=== PATIENT | female | born 1950 | race Caucasian/White ===

== ENCOUNTER 2020-07-20 08:14 | Inpatient (IN) ==
[2020-07-20] MEDS ORDERED: DILTIAZEM 50 MG/10 ML VIAL IV STA (08:37)
[2020-07-20 08:45] LABS: Basophils % 0.3 % (0.0-0.8); Eosinophils # 0.2 10*3/uL (0.0-0.87); Eosinophils % 3.5 % (0.00-10.9); Immature Granulocytes % 0.3 %; Immature Granulocytes Absolute 0.02 #; Lymphocytes # 0.6 10*3/uL (1.4-4.0); Lymphocytes % 9.4 % (21.3-54.2); Mean Corpuscular Volume 80.8 FL (87-102); Mean Platelet Volume 8.5 FL (9.6-12.0); Monocytes % 9.5 % (1.7-12.7); Platelet Count 377 T/CUMM (130-400); Red Cell Distribution Width 20.3 % (9.3-17.3); White Blood Count 6.5 T/CUMM (4-12)
[2020-07-20 08:49] LABS: Hemoglobin 6.1 GM/DL (12.0-16.0)
[2020-07-20 08:54] LABS: PT Patient Result 10.5 SECS (9.8-11.9)
[2020-07-20] MEDS: DILTIAZEM INJ 100 MG in SODIUM CHLORIDE 0.9% 100 ML IV SCH ×2 (09:07→15:53)
[2020-07-20] MEDS ORDERED: SODIUM CHLORIDE 0.9% 1,000 ML IV PRN (09:13)
[2020-07-20 09:15] LABS: Folate > 24.0 NG/ML (5.38-24.0); Vitamin B12 1039 PG/ML (211-911)
[2020-07-20 09:22] LABS: Alanine Aminotransferase 50 U/L (13-56); Albumin 2.8 G/DL (3.4-5.0); Alkaline Phosphatase 155 U/L (45-117); Aspartate Amino Transferase 32 U/L (0-37); Bilirubin,Total < 0.39 MG/DL (0.2-1.0); Blood Urea Nitrogen 32 MG/DL (7-18); Calcium 8.6 MG/DL (8.5-10.1); Carbon Dioxide 23 MMOL/L (21-32); Estimated Glom Filtration Rate 49 ML/MIN; Glucose 105 MG/DL (74-106); Osmolality,Calculated 264.9 MOS/KG (273-304); Potassium 3.6 MMOL/L (3.5-5.1); Sodium 129 MMOL/L (136-145); Total Protein 6.6 G/DL (6.4-8.2)
[2020-07-20 09:29] LABS: Bilirubin,Urine Negative (Negative); Blood, Urine Negative (Negative); Glucose,Urine (UA) Negative (Negative); Ketones,Urine Negative (Negative); Mucus,Urine Occasional /LPF (Occasional); Nitrite,Urine Negative (Negative); Protein,Urine Negative; Squamous Epithelial Cell,Urine Occasional /HPF (0-10); Urine Appearance CLEAR (Clear); Urine Color Yellow (Yellow); Urine Specific Gravity 1.011 (1.001-1.035); Urine Urobilinogen < 2.0 EU/DL (0.2-1.0); WBC,Urine <1 /HPF (0-6)
[2020-07-20 09:33] LABS: Barbiturates Screen,Urine Negative (Negative); Benzodiazepines Screen,Urine Positive (Negative); Cannabinoid Screen,Urine Negative (Negative); Opiate Screen,Urine Negative (Negative); Phencyclidine Screen,Urine Negative (Negative)
[2020-07-20] MEDS ORDERED: DEXTROSE 50% 25 GM/50 ML VIAL IV PRN (09:55)
[2020-07-20] MEDS ORDERED: ONDANSETRON 4 MG/2 ML VIAL IV PRN (09:55)
[2020-07-20] MEDS ORDERED: GLUCAGON 1 MG VIAL IM PRN (09:55)
[2020-07-20] MEDS ORDERED: ACETAMINOPHEN 325 MG TABLET PO PRN (09:55)
[2020-07-20] MEDS: LORazepam 1 MG TABLET PO PRN (12:24)
[2020-07-20] MEDS ORDERED: POTASSIUM CHLORIDE 20 MEQ TABLET PO ONE (13:12)
[2020-07-20] MEDS ORDERED: MAGNESIUM SULF RIDER 2 GM in PREMIX 1 EACH IV ONE (13:12)
[2020-07-20] MEDS: busPIRone 15 MG TABLET PO SCH (20:16)
[2020-07-20] MEDS: FERROUS SULFATE 325 MG TABLET PO SCH (20:17)
[2020-07-21] MEDS: DILTIAZEM INJ 100 MG in SODIUM CHLORIDE 0.9% 100 ML IV SCH ×2 (04:57→18:43)
[2020-07-21 06:44] LABS: Basophils % 0.4 % (0.0-0.8); Eosinophils # 0.2 10*3/uL (0.0-0.87); Eosinophils % 1.8 % (0.00-10.9); Immature Granulocytes % 0.5 %; Immature Granulocytes Absolute 0.05 #; Lymphocytes # 0.4 10*3/uL (1.4-4.0); Lymphocytes % 4.4 % (21.3-54.2); Mean Corpuscular HGB Conc 30.4 GM/DL (32-36); Mean Corpuscular Volume 82.9 FL (87-102); Monocytes % 7.8 % (1.7-12.7); Neutrophils % 85.1 % (38.7-73.9); Platelet Count 323 T/CUMM (130-400); Red Cell Distribution Width 19.1 % (9.3-17.3)
[2020-07-21 06:51] LABS: Hematocrit 29.6 VOL% (35.7-47.0); Red Blood Count 3.57 MC/CUMM (3.8-5.5)
[2020-07-21 07:02] LABS: Calcium 8.7 MG/DL (8.5-10.1); Osmolality,Calculated 268.4 MOS/KG (273-304); Potassium 4.2 MMOL/L (3.5-5.1); Risk Ratio 1.84; VLDL CHOLESTEROL 8.6 MG/DL
[2020-07-21 07:06] LABS: Eosinophils 2 % (0-10); Hypochromasia 1+; Lymphocytes 2 % (20-55); Microcytosis 1+; Platelet Estimate Adequate; Segmented Neutrophils 92 % (50-85); Total Cells Counted 100
[2020-07-21] MEDS: LORazepam 1 MG TABLET PO PRN ×3 (07:29→21:42)
[2020-07-21] MEDS ORDERED: LACTATED RINGERS 1,000 ML IV SCH (08:00)
[2020-07-21] MEDS ORDERED: FUROSEMIDE 40 MG/4 ML VIAL IV ONE (08:41)
[2020-07-21] MEDS ORDERED: METOPROLOL TARTRATE 5 MG/5 ML VIAL IV ONE (08:42)
[2020-07-21] MEDS: SODIUM CHLORIDE 0.9% 1,000 ML IV SCH (11:28)
[2020-07-21] MEDS ORDERED: DILTIAZEM CD 240 MG CAPSULE PO SCH (13:30)
[2020-07-21] MEDS ORDERED: ETOMIDATE 20 MG/10 ML VIAL IV ONE (13:45)
[2020-07-21] MEDS ORDERED: LIDOCAINE 2% 5 ML VIAL ONE (13:45)
[2020-07-21] MEDS: ASCORBIC ACID 500 MG TABLET PO SCH ×2 (15:02→21:42)
[2020-07-21] MEDS: FOLIC ACID 1 MG TABLET PO SCH (15:02)
[2020-07-21] MEDS: THIAMINE 100 MG TABLET PO SCH (15:02)
[2020-07-21] MEDS: FERROUS SULFATE 325 MG TABLET PO SCH ×2 (15:02→21:42)
[2020-07-21] MEDS: PANTOPRAZOLE 40 MG TABLET PO SCH (15:02)
[2020-07-21] MEDS: MULTIVITAMIN (CENTRUM) TABLET PO SCH (15:03)
[2020-07-21] MEDS: buPROPion XL 150 MG TABLET PO SCH (15:10)
[2020-07-21] MEDS: busPIRone 15 MG TABLET PO SCH ×2 (15:10→21:42)
[2020-07-21] MEDS: ATORVASTATIN 20 MG TABLET PO SCH (15:10)
[2020-07-21] MEDS ORDERED: DILTIAZEM CD 240 MG CAPSULE PO ONE (18:59)
[2020-07-21] MEDS: DOCUSATE SODIUM 100 MG CAPSULE PO PRN (21:42)
[2020-07-22 06:51] LABS: Basophils % 0.3 % (0.0-0.8); Eosinophils # 0.2 10*3/uL (0.0-0.87); Eosinophils % 1.6 % (0.00-10.9); Hematocrit 30.4 VOL% (35.7-47.0); Hemoglobin 9.8 GM/DL (12.0-16.0); Immature Granulocytes % 0.3 %; Immature Granulocytes Absolute 0.03 #; Lymphocytes # 0.5 10*3/uL (1.4-4.0); Lymphocytes % 5.1 % (21.3-54.2); Mean Corpuscular HGB Conc 32.2 GM/DL (32-36); Mean Corpuscular Volume 80.6 FL (87-102); Mean Platelet Volume 8.8 FL (9.6-12.0); Monocytes % 5.8 % (1.7-12.7); Neutrophils % 86.9 % (38.7-73.9); Platelet Count 316 T/CUMM (130-400); Red Blood Count 3.77 MC/CUMM (3.8-5.5); Red Cell Distribution Width 19.6 % (9.3-17.3); White Blood Count 9.2 T/CUMM (4-12)
[2020-07-22 07:03] LABS: Calcium 9.3 MG/DL (8.5-10.1); Osmolality,Calculated 269.2 MOS/KG (273-304); Potassium 3.5 MMOL/L (3.5-5.1)
[2020-07-22] MEDS ORDERED: POTASSIUM CHLORIDE 20 MEQ TABLET PO ONE (07:31)
[2020-07-22] MEDS: FOLIC ACID 1 MG TABLET PO SCH (08:25)
[2020-07-22] MEDS: buPROPion XL 150 MG TABLET PO SCH (08:25)
[2020-07-22] MEDS: busPIRone 15 MG TABLET PO SCH ×2 (08:25→21:04)
[2020-07-22] MEDS: MULTIVITAMIN (CENTRUM) TABLET PO SCH (08:25)
[2020-07-22] MEDS: DILTIAZEM CD 240 MG CAPSULE PO SCH ×2 (08:25→21:07)
[2020-07-22] MEDS: PANTOPRAZOLE 40 MG TABLET PO SCH (08:26)
[2020-07-22] MEDS: ASCORBIC ACID 500 MG TABLET PO SCH ×2 (08:26→21:05)
[2020-07-22] MEDS: ATORVASTATIN 20 MG TABLET PO SCH (08:26)
[2020-07-22] MEDS: FERROUS SULFATE 325 MG TABLET PO SCH ×2 (08:26→21:05)
[2020-07-22] MEDS: THIAMINE 100 MG TABLET PO SCH (08:26)
[2020-07-22] MEDS: DOCUSATE SODIUM 100 MG CAPSULE PO PRN (08:26)
[2020-07-22] MEDS: SODIUM CHLORIDE 0.9% 1,000 ML IV SCH (17:05)
[2020-07-22] MEDS: DILTIAZEM INJ 100 MG in SODIUM CHLORIDE 0.9% 100 ML IV SCH (17:05)
[2020-07-23 06:37] LABS: Basophils % 0.5 % (0.0-0.8); Eosinophils # 0.4 10*3/uL (0.0-0.87); Eosinophils % 5.4 % (0.00-10.9); Hematocrit 30.1 VOL% (35.7-47.0); Hemoglobin 9.2 GM/DL (12.0-16.0); Immature Granulocytes % 0.4 %; Immature Granulocytes Absolute 0.03 #; Lymphocytes # 0.6 10*3/uL (1.4-4.0); Lymphocytes % 7.4 % (21.3-54.2); Mean Corpuscular HGB Conc 30.6 GM/DL (32-36); Mean Corpuscular Volume 83.1 FL (87-102); Mean Platelet Volume 9.4 FL (9.6-12.0); Monocytes % 7.4 % (1.7-12.7); Neutrophils % 78.9 % (38.7-73.9); Platelet Count 346 T/CUMM (130-400); Red Blood Count 3.62 MC/CUMM (3.8-5.5); Red Cell Distribution Width 19.9 % (9.3-17.3); White Blood Count 8.1 T/CUMM (4-12)
[2020-07-23 06:46] LABS: Calcium 9.4 MG/DL (8.5-10.1); Potassium 3.8 MMOL/L (3.5-5.1)
[2020-07-23] MEDS: ASCORBIC ACID 500 MG TABLET PO SCH (08:40)
[2020-07-23] MEDS: FERROUS SULFATE 325 MG TABLET PO SCH (08:41)
[2020-07-23] MEDS: PANTOPRAZOLE 40 MG TABLET PO SCH (08:41)
[2020-07-23] MEDS: busPIRone 15 MG TABLET PO SCH (08:41)
[2020-07-23] MEDS: buPROPion XL 150 MG TABLET PO SCH (08:41)
[2020-07-23] MEDS: MULTIVITAMIN (CENTRUM) TABLET PO SCH (08:41)
[2020-07-23] MEDS: DILTIAZEM CD 240 MG CAPSULE PO SCH (08:42)
[2020-07-23] MEDS: FOLIC ACID 1 MG TABLET PO SCH (08:43)
[2020-07-23] MEDS: ATORVASTATIN 20 MG TABLET PO SCH (08:43)
[2020-07-23] MEDS: THIAMINE 100 MG TABLET PO SCH (08:43)
[2020-07-23] MEDS: SODIUM CHLORIDE 0.9% 1,000 ML IV SCH (08:44)
[2020-07-23] MEDS: DILTIAZEM INJ 100 MG in SODIUM CHLORIDE 0.9% 100 ML IV SCH (10:49)
[2020-07-23 15:56] VITALS: BP 112/61
== END 2020-07-23 18:45 | DRG 811 ==
LOC: N.ED 08:14 → SUATTDRO 09:55 → N.EDINP 09:55 → N.TELEN 11:15
PROVIDERS: ADMIT Family Medicine; ATTEND Hospitalist